=== PATIENT | male | born 1965 | race African-American/Black ===

== ENCOUNTER 2018-05-10 12:20 | Emergency (ER) | payer OTHER ==
[~2018-05-10] VITALS: Ht 188 cm; Wt 106.6 kg
[2018-05-10 12:29] VITALS: BP 163/110
--- NOTE | 2018-05-10 12:30 | NUR ---
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 a/o x4, ambulatory steady gait, denies headache or any vision change.
[2018-05-10] MEDS ORDERED: Ketorolac 30mg Inj IM ONE (12:45)
[2018-05-10] MEDS ORDERED: LET 3ml Soln TOPIC ONE (13:00)
--- NOTE | 2018-05-10 13:08 | Emergency Room Report ---
History of Present Illness General Chief Complaint: Laceration Source: Patient Present Illness HPI 52-year-old male patient presents the ER status post mechanical trip and fall earlier today. Reports that he was walking upstairs when he slipped and fell on some ice. Reports that he fell forward. Reports there was no FOOSH injury because his hands were in his pockets. Denies wrist, arm or hand pain. Reports he hit his left eye and sustained a small laceration at that area of his left eyelid. Reports loss of consciousness for several seconds. Denies vomiting or vision changes. Denies photophobia or phonophobia. Reports up-to-date on vaccination. Denies pacemaker. Denies fever, chest pain, shortness of breath. Denies other aggravating or relieving factors. Allergies: Coded Allergies: No Known Allergies (Unverified , 05/10/18) Patient History Past Medical History: see triage record Reviewed Nursing Documentation: PMH: Agreed; PSxH: Agreed Nursing Documentation-PMH Past Medical History: No Stated History Review of Systems All Other Systems: negative except mentioned in HPI Physical Exam Vital Signs Date Time Temp Pulse Resp B/P (MAP) Pulse Ox O2 Delivery O2 Flow Rate FiO2 05/10/18 12:24 98.2 76 18 163/110 99 Room Air Sp02 EP Interpretation: reviewed, normal General Appearance: well appearing, no apparent distress, alert, GCS 15, non- toxic Head: normocephalic, atraumatic, other - Negative raccoon eyes, negative lynn sign; contusion and swelling noted over nasal bridge Eyes: bilateral eye normal inspection, bilateral eye PERRL ENT: hearing grossly normal, normal pharynx, no angioedema, normal voice, TMs + canals normal - Negative hemotympanum bilaterally, uvula midline, moist mucus membranes, other - no septal devaition, no blue mass or discoloration Neck: full range of motion, no bony tend Respiratory: lungs clear, normal breath sounds, no rhonchi, no respiratory distress, no accessory muscle use, no wheezing, speaking full sentences Cardiovascular #1: regular rate, rhythm, no edema Musculoskeletal: back normal, digits/nails normal, gait/station normal, normal range of motion, non-tender Neurologic: alert, oriented x3, responsive, coding compliance specialist III-XII nml as tested, motor strength/tone normal, sensory intact, cerebellar normal, normal gait, speech normal Psychiatric: mood/affect normal Skin: no rash, laceration - Superficial 2 cm laceration noted over left eyelid , linear, no active bleeding, surrounding tissue swelling noted, no surrounding erythema, wound edges well approximated Procedures Laceration/Wound Repair Laceration/Wound Repair : Consent: Verbal Wound Location: face Wound's Depth, Shape: superficial Wound Length (cm): 2 Wound Explored: contaminated Irrigated w/ Saline (ccs): 10 Betadine Prep?: Yes Anesthesia: other - LET topical Volume Anesthetic (ccs): 1 Wound Debrided: extensive Wound Repaired With: Dermabond Layer Closure?: No Sterile Dressing Applied?: Yes Splint Applied?: No Sling Applied?: No Patient Tolerated: Well Complications: None Medical Decision Making PA Attestation Dr. Arevalo is my supervising Physician whom patient management has been discussed with. Diagnostic Impression: Primary Impression: Head trauma Additional Impression: Laceration ER Course Pt presents to ED c/o laceration on left eye s/p fall. DDX considered but are not limited to laceration, abrasion, contusion, cellulitis, ICH, skull fracture. CT machine currently down, will order MRI of head due to patient report of loss of consciousness from fall. VITAL SIGNS are WNL, patient is afebrile ED INTERVENTIONS: Wound was cleaned and copiously irrigated using normal saline, no FB removed. Local block using topical LET. Laceration repaired with Dermabond. See procedure note. Apply bacitracin to help reduce appearance of scar. CT head and facial bones negative. Discuss results with the patient. Provided patient with copy of results. Instructed patient to followup with PCP and discuss results of report with patient, discuss need for further treatment and referral. Patient OK for discharge to home. Patient resting comfortably, in no acute distress, nontoxic appearing. DISCHARGE: Rx provided for Keflex Rx provided for Ibuprofen At this time pt is stable for d/c to home. Patient resting comfortably, in no acute distress, nontoxic appearing, talking without difficulty. Will provide with patient care instructions and any necessary prescriptions. Patient to take medication as instructed. Care plan and follow-up instructions provided. Patient questions asked and answered. Patient reports understanding and agreement to treatment plan. Patient instructed to follow-up with primary care provider in 1-3 days for wound check and 5-7 days for removal of aaron. Patient instructed to followup with PCP to discuss further treatment plan and ability to go to work, ER precautions given. Patient instructed to return to ER immediately for any new or worsening of symptoms. CT/MRI/US Diagnostic Results CT/MRI/US Diagnostic Results #1: Imaging Test Ordered: CT head Impression negative CT/MRI/US Diagnostic Results #2: Imaging Test Ordered: CT facial bones Impression negative Last Vital Signs Date Time Temp Pulse Resp B/P (MAP) Pulse Ox O2 Delivery O2 Flow Rate FiO2 05/10/18 12:29 98.2 76 18 163/110 99 Room Air Status: improved Disposition: HOME, SELF-CARE Condition: Stable Scripts Ibuprofen* (MOTRIN*) 800 Mg Tablet 800 MG ORAL Q8H, #30 TAB 0 Refills Prov: Jesus Adams 05/10/18 Cephalexin* (KEFLEX*) 500 Mg Capsule 500 MG ORAL EVERY 12 HOURS, #14 CAP 0 Refills Prov: Jesus Adams 05/10/18 Referrals: NOT CHOSEN IPA/MD,REFERRING (PCP) Patient Instructions: Concussion, Adult, [id number], Head Injury, Adult, Easy -to-Read, Nonsutured Laceration Care Additional Instructions: Follow up with primary care physician and workman's compensation physician in 1 - 2 days. If you experience loss of consciousness, vision loss or intractable vomiting, return to ED immediately. Avoid screen time. Drink plenty of fluids. Avoid alcohol/drug use, rest. Apply bacitracin to help reduce appearance of the scar. Take medications as directed. Patient questions asked and answered. ER precautions given, patient instructed to return to ER immediately for any new or worsening of symptoms. Jesus Adams May 10, 2018 13:08
--- NOTE | 2018-05-10 13:49 | NUR ---
ED Nurse Note: patient taken down for CT
--- NOTE | 2018-05-10 14:02 | NUR ---
ED Nurse Note: patient came back from CT
--- NOTE | 2018-05-10 14:37 | Diagnostic Imaging Report ---
Indication: Headache Technique: Contiguous 5 mm thick transaxial imaging of the head obtained in a Siemens Sensation [address] scanner. Soft tissue and bone windows generated. Automatic Exposure Control was utilized. Total Dose length Product (DLP): 1502.[address] Dose Index Volume (CTDIvol): 70.38 mGy Comparison: none Findings: The size and configuration of the cortical sulci, basal cisterns, and ventricles are within normal limits for age. There is no mass effect, midline shift, or edema identified. There is no evidence of acute hemorrhage or abnormal intra-axial or extra-axial fluid collections. The bones and soft tissues are unremarkable. Impression: No mass effect, edema or acute bleed. The CT scanner at [facility] is accredited by the [employer] and the scans are performed using dose optimization techniques as appropriate to a performed exam including Automatic Exposure control.
--- NOTE | 2018-05-10 14:45 | Diagnostic Imaging Report ---
Indication: Trauma Technique: Continuous helical transaxial imaging of the maxillofacial structures obtained without intravenous contrast administration. Coronal 2-D reformats were also obtained. Study obtained in a Siemens sensation [address] Automatic Exposure Control was utilized. Total Dose length Product (DLP): Refer to CT head mGycm CT Dose Index Volume (CTDIvol): Refer to CT head mGy Comparison: None Findings: There is no evidence of an acute fracture. Paranasal sinuses and mastoids are clear. Soft tissues are unremarkable. TMJs are unremarkable. Orbits are unremarkable. IMPRESSION: Negative evaluation The CT scanner at [facility] is accredited by the [employer] and the scans are performed using dose optimization techniques as appropriate to a performed exam including Automatic Exposure control.
[2018-05-10] MEDS ORDERED: IBUPROFEN800 MG ORAL (14:58)
[2018-05-10] MEDS ORDERED: CEPHALEXIN500 MG ORAL (14:58)
[2018-05-10 15:06] VITALS: BP 150/100
--- NOTE | 2018-05-10 15:17 | NUR ---
ED Nurse Note: pt was cleared to be discharged from [facility]. stiches on laceration done. pt reported tolerable pain level 2/10. pt aao x4, skin clean and intact.
--- NOTE | 2018-05-10 15:20 | NUR ---
ED Nurse Note: pt stable to be discharged, verbalized understanding on discharge instruction. id band removed. pt ambulated to be discharged.
== END 2018-05-10 15:19 | disposition home or self-care (01) ==
LOC: EMR 12:48
DX: S01.112A Laceration without foreign body of left eyelid and periocular area, initial encounter (principal); S00.33XA Contusion of nose, initial encounter; W10.9XXA Fall (on) (from) unspecified stairs and steps, initial encounter; Y92.009 Unspecified place in unspecified non-institutional (private) residence as the place of occurrence of the external cause
CPT/HCPCS: 12011; 70450; 70486; 96372; 99284; J1885

== ENCOUNTER 2018-05-15 14:31 | Emergency (ER) | payer OTHER ==
[~2018-05-15] VITALS: Ht 190.5 cm; Wt 106.6 kg
[~2018-05-15 14:31] MED LIST: CEPHALEXIN500 MG ORAL; IBUPROFEN800 MG ORAL
[2018-05-15 14:35] VITALS: BP 153/104
[2018-05-15] MEDS ORDERED: NKM (14:38)
--- NOTE | 2018-05-15 14:49 | Emergency Room Report ---
History of Present Illness General Chief Complaint: Wound Recheck/Suture Removal Source: Patient Present Illness HPI 52-year-old male patient presents the ER requesting wound check of laceration over left eye. Patient was previously seen here several days ago after falling and hitting his head. Had laceration over his left eye that was repaired with Dermabond. Patient reports feeling well. Denies fever vomiting. Denies chest pain, shortness of breath, abdominal pain. Denies drainage from the eye. Reports took a few days of antibiotics however stopped. Reports has not used topical antibiotic at this time. States has not follow with primary care provider other physician. States has returned to work without any difficulties. Denies headache, vomiting, vision changes. Allergies: Coded Allergies: No Known Allergies (Unverified , 05/10/18) Patient History Past Medical History: see triage record Reviewed Nursing Documentation: PMH: Agreed; PSxH: Agreed Nursing Documentation-PMH Past Medical History: No Stated History Review of Systems All Other Systems: negative except mentioned in HPI Physical Exam Vital Signs Date Time Temp Pulse Resp B/P (MAP) Pulse Ox O2 Delivery O2 Flow Rate FiO2 05/15/18 14:35 98.2 86 18 153/104 96 Room Air Sp02 EP Interpretation: reviewed, normal General Appearance: well appearing, no apparent distress, alert, GCS 15, non- toxic Head: normocephalic, atraumatic Eyes: bilateral eye normal inspection, bilateral eye PERRL ENT: hearing grossly normal, normal pharynx, no angioedema, normal voice, uvula midline, moist mucus membranes Neck: full range of motion Respiratory: lungs clear, normal breath sounds, no rhonchi, no respiratory distress, no accessory muscle use, no wheezing, speaking full sentences Cardiovascular #1: regular rate, rhythm, no edema Psychiatric: mood/affect normal Skin: other - Is left eyelid inferior to eyebrow: Small 1 cm laceration, healing well, no drainage, no surrounding erythema or edema, wound edges well approximated Medical Decision Making PA Attestation Dr. Garza is my supervising Physician whom patient management has been discussed with. Diagnostic Impression: Primary Impression: Encounter for wound re-check ER Course Pt. presents to the ED requesting wound check of laceration over left eye. Ddx considered but are not limited to cellulitis, abscess, wound check, folliculitis. Vital signs: are WNL, pt. is afebrile ER COURSE: Wound has no signs of infection., no erythema, edema, TTP, sensation is intact to light touch. Wound edges appear well approximated, appears healing well, no drainage. Apply Neosporin to wound to reduce appearance of scar. Follow-up with Workmen's Compensation physician. Follow-up with plastic surgeon as desired to discuss treatment to reduce appearance of scar. Complete full course of abx. DISCHARGE: Patient instructed to continue with medications per initial ER provider instructions. At this time pt. is stable for d/c to home. Patient resting comfortatbly, in no acute distress, nontoxic appearing. Will provide printed patient care instructions and any necessary prescriptions. Care plan and follow up instructions have been discussed with the patient prior to discharge. Patient instructed to follow-up with primary care provider for further treatment and referral. Patient questions asked and answered. ER precautions given. Patient instructed to return to ER immediately for any new or worsening of symptoms including but not limited to fever, worsening of pain symptoms. - Please note that this Emergency Department Report was dictated using [employer] assembler technology software, occasionally this can lead to erroneous entry secondary to interpretation by the dictation equipment. Last Vital Signs Date Time Temp Pulse Resp B/P (MAP) Pulse Ox O2 Delivery O2 Flow Rate FiO2 05/15/18 14:35 98.2 86 18 153/104 96 Room Air Disposition: HOME, SELF-CARE Condition: Stable Patient Instructions: Wound Check Additional Instructions: Followup with primary care provider in 3 -5 days. Apply Neosporin to wound to reduce appearance of scar. Follow-up with Workmen's Compensation physician. Follow-up with plastic surgeon as desired to discuss treatment to reduce appearance of scar. Take medications as directed. Complete full course of antibiotics as previously instructed. Patient questions asked and answered. ER precautions given, patient instructed to return to ER immediately for any new or worsening of symptoms. Jesus Adams May 15, 2018 14:48
[2018-05-15 14:53] VITALS: BP 152/98
--- NOTE | 2018-05-15 14:53 | NUR ---
ED Nurse Note: Pt was seen for ff up of his left eyebrow laceration. Pt cleared by Health Care Provider for discharge. DC instructions given and explained to pt and verbalized understanding of teachings. All medical devices such as ID band removed. Pt AAO x4, ambulatory and left with all personal belongings.
== END 2018-05-15 14:53 | disposition home or self-care (01) ==
LOC: EMR 14:48
DX: Z48.00 Encounter for change or removal of nonsurgical wound dressing (principal)
CPT/HCPCS: 99281